=== PATIENT | male | born 1945 | race African-American/Black ===

== ENCOUNTER 2017-02-28 11:56 | Outpatient (CLI) | payer OTHER ==
--- NOTE | 2017-02-28 14:12 | CT ---
CT BRAIN WITHOUT CONTRAST: History: Follow up intracerebral hemorrhage. CVA three years ago. Comparison: None. FINDINGS: No acute territory infarct or hemorrhage. No midline shift. No mass effect. Ventricular size and extr aaxial CSF spaces are normal. Calvarium is intact. Paranasal sinuses and mastoids are clear. IMPRESSION: 1. No acute intracranial abnormality. 2. Mild atrophy. POS: [facility]
== END 2017-02-28 11:57 | disposition home or self-care (01) ==
LOC: CT 11:56
PROVIDERS: ATTEND Psychiatry & Neurology Neurology
DX: I61.9 Nontraumatic intracerebral hemorrhage, unspecified (principal); M62.50 Muscle wasting and atrophy, not elsewhere classified, unspecified site
CPT/HCPCS: 70450

== ENCOUNTER 2020-09-19 09:04 | Outpatient (CLI) | payer MEDICARE, OTHER | END 2020-09-19 09:05 | disposition home or self-care (01) | LOC: BICMAMMO 09:04 | PROVIDERS: ATTEND Registered Nurse | DX: M81.0 Age-related osteoporosis without current pathological fracture (principal) | CPT/HCPCS: 77080 ==